=== PATIENT | female | born 1945 | race Caucasian/White ===

== ENCOUNTER → 2023-01-02 | Day surgery (SDC) | payer MEDICARE, BC ==
[~2023-01-02] MED LIST: Ketamine 200 MG/20 ML MDV ONE; Lactated Ringers 1,000 ML IV SCH; Propofol 200 MG/20 ML SDV ONE; ePHEDrine 50 MG/ML SDV ONE; fentaNYL 50 MCG/ML SDV ONE
[2023-01-02 10:04] VITALS: BP 106/63; PULSE 16
== END ==
LOC: CC.SDS 08:08
PROVIDERS: ATTEND Family Medicine
DX: Z12.11 Encounter for screening for malignant neoplasm of colon (principal); D12.2 Benign neoplasm of ascending colon; D12.3 Benign neoplasm of transverse colon; D12.8 Benign neoplasm of rectum; K57.30 Diverticulosis of large intestine without perforation or abscess without bleeding; K63.89 Other specified diseases of intestine; M85.80 Other specified disorders of bone density and structure, unspecified site; M19.90 Unspecified osteoarthritis, unspecified site; Z80.0 Family history of malignant neoplasm of digestive organs; Z79.899 Other long term (current) drug therapy; Z88.0 Allergy status to penicillin; Z88.2 Allergy status to sulfonamides; Z88.1 Allergy status to other antibiotic agents; Z88.8 Allergy status to other drugs, medicaments and biological substances; Z88.5 Allergy status to narcotic agent
CPT/HCPCS: 00811; 45380; 45385; 88305; 99100; J2704; J3010; J3490; J7120